=== PATIENT | female | born 1950 | race African-American/Black ===

== ENCOUNTER 2016-12-31 10:47 | Emergency (ER) | payer BC ==
--- NOTE | ~2016-12-31 | CR156 ---
[facility] A Service of [facility] & [facility] RADIOLOGY TEXT RESULTS PATIENT: ELODIA MRAC LOCATION: CFTX : 52 UNIT #: [id number] AGE: [address]: Kathrine Salguero APRN SEX: F ORDER DR: [id number] [facility] [address] [place], [place] [address] [id number] E MR#: [id number] Acc #: [id number] NAME: ELODIA MARC. : 1950 SEX: F STUDY DATE/TIME: 12/31/2016 10:25 UNIT: TX ROOM: STUDY DESCRIPTION: CR Humerus Min 2 View Lt Attending Physician: Kathrine Salguero A.P.R.N. Ordering Physician: Kathrine Salguero A.P.R.N. [facility] REPORT This report is preliminary unless electronic signature is present EXAM Left humerus, 2 views. INDICATION Fall today. Left shoulder and arm pain. COMPARISON STUDIES No comparisons. FINDINGS There is no fracture. Soft tissue structures are unremarkable. Alignment normal. IMPRESSION No fracture. Dictated by... Darrell Gonzales M.D. THIS IS AN ELECTRONICALLY VERIFIED REPORT Darrell Gonzales M.D. at 12/31/2016 4:05 PM SABA/macario TD: 12/31/2016 12:12 JOB #: [id number] MEDICAL IMAGING REPORT Page 1 of 1 COPY
--- NOTE | ~2016-12-31 | CR229 ---
[facility] A Service of [facility] & [facility] RADIOLOGY TEXT RESULTS PATIENT: ELODIA MARC LOCATION: CFTX : 52 UNIT #: [id number] AGE: [address]: Kathrine Salguero APRN SEX: F ORDER DR: [id number] [facility] [address] [place], [place] [address] [id number] E MR#: [id number] Acc #: [id number] NAME: ELODIA MARC. : 1950 SEX: F STUDY DATE/TIME: 12/31/2016 10:29 UNIT: [facility] ROOM: STUDY DESCRIPTION: CR Shoulder Min 2 View Lt Attending Physician: Kathrine Salguero A.P.R.N. Ordering Physician: Kathrine Salguero A.P.R.N. [facility] Care [facility] REPORT This report is preliminary unless electronic signature is present EXAM Left shoulder 3 views INDICATION Shoulder pain after falling today. COMPARISON No comparisons FINDINGS There is mild degenerative change and osteophyte formation involving the AC joint. The glenohumeral joint is intact. No evidence for fracture. IMPRESSION No fracture or dislocation. Dictated by... Darrell Gonzales M.D. THIS IS AN ELECTRONICALLY VERIFIED REPORT Darrell Gonzales M.D. at 12/31/2016 4:05 PM SABA/benjy TD: 12/31/2016 12:07 JOB #: [id number] MEDICAL IMAGING REPORT Page 1 of 1 COPY
[~2016-12-31 10:47] MED LIST: ADVAIR 5001 DISK W/D; ADVICOR 5001 BOTTLE; CLARINEX5 MG; FLONASE16 GM; HCTZ PO; HYDROCODON-ACE1 EAC7 PO; KCL PO; LORTAB 10-5001 EACH PO; PAXIL PO; PRAVACHOL20 MG PO; PROCARDIA XL PO; PROCARDIA10 MG; XANAX0.5 MG PO
== END 2016-12-31 11:38 | disposition home or self-care (01) ==
LOC: CFTX 10:47
DX: S40.012A Contusion of left shoulder, initial encounter (principal); J44.9 Chronic obstructive pulmonary disease, unspecified; W01.0XXA Fall on same level from slipping, tripping and stumbling without subsequent striking against object, initial encounter
CPT/HCPCS: 73030; 73060; 99284